=== PATIENT | male | born 1970 | race African-American/Black ===

== ENCOUNTER 2021-03-02 23:54 | Emergency (ER) | payer BC ==
[~2021-03-02] VITALS: Ht 167.6 cm; Wt 104.3 kg
== END 2021-03-03 02:30 | disposition home or self-care (01) ==
LOC: ER 03-03 02:12
DX: M79.674 Pain in right toe(s) (principal); M10.9 Gout, unspecified; I10 Essential (primary) hypertension; E11.9 Type 2 diabetes mellitus without complications
CPT/HCPCS: 99283